=== PATIENT | female | born 1960 | race Caucasian/White ===

== ENCOUNTER → 2023-07-18 12:56 | Outpatient (REF) | payer BC, SELFPAY | LOC: WDC 12:56 | PROVIDERS: ATTENDING PHYSICIAN Family Medicine | DX: Z12.31 Encounter for screening mammogram for malignant neoplasm of breast (principal) | CPT/HCPCS: 77063; 77067 ==

== ENCOUNTER → 2024-03-15 10:47 | Outpatient (REF) | payer MEDICARE, SELFPAY | LOC: RAD 10:47 | PROVIDERS: ATTENDING PHYSICIAN Family Medicine | DX: Z78.0 Asymptomatic menopausal state (principal) | CPT/HCPCS: 77080 ==

== ENCOUNTER → 2024-08-01 11:01 | Outpatient (REF) | payer MEDICARE, SELFPAY | LOC: WDC 11:01 | PROVIDERS: ATTENDING PHYSICIAN Family Medicine | DX: Z12.31 Encounter for screening mammogram for malignant neoplasm of breast (principal) | CPT/HCPCS: 77063; 77067 ==

== ENCOUNTER → 2025-02-26 10:37 | Outpatient (REF) | payer MEDICARE, SELFPAY | LOC: RAD 10:37 | PROVIDERS: ATTENDING PHYSICIAN Family Medicine | DX: G89.29 Other chronic pain (principal); M54.50 Low back pain, unspecified; M53.3 Sacrococcygeal disorders, not elsewhere classified | CPT/HCPCS: 72110; 72202 ==